=== PATIENT | male | born 1995 | race African-American/Black ===

== ENCOUNTER 2017-10-09 12:02 | Emergency (ER) | payer OTHER ==
[~2017-10-09] VITALS: Ht 170.2 cm; Wt 70.0 kg
[2017-10-09 12:06] VITALS: BP 132/63; PULSE 81; RESP 16; TEMP 98.1; O2SAT 98
--- NOTE | 2017-10-09 12:12 | PD ---
HPI Chief Complaint: Seizure Time Seen by Provider: 12:11 Travel History International Travel<30 days: No Contact w/Intl Traveler<30days: No Traveled to known affect area: No History of Present Illness HPI 22-year-old male came to the emergency room with history of possible seizure. When EMS arrived they found him altered mental status and lethargic. No tongue bite lip bite. No incontinence. Patient says he thinks he has seizure disorder because he's had them before. Upon asking he tells me that he had smoked weed last night. Denies any other illicit drug abuse. Currently is awake and answering questions slowly. Vital signs are stable. [facility]LY [facility], [facility] Past Medical History Narrative Medical List of her past medical, surgical, social and family history is reviewed from the nursing note. Asthma: No Blood Disorders: No Anxiety: No Depression: No Heart Rhythm Problems: No Cancer: No Cardiovascular Problems: No High Cholesterol: No Chest Pain: Yes Congestive Heart Failure: No COPD: No Diabetes: No Diminished Hearing: No Genitourinary: No Headaches: Yes Insomnia: Yes Musculoskeletal: No Neurologic: Yes (NEW ONSET SEIZURES) Psychiatric: No Reproductive: No Respiratory: No Immunizations Current: Yes Sleep Apnea: No Thyroid Disease: No Social History Alcohol Use: No Tobacco Use: No Substance Use: Yes (ECTASY) Allergies-Medications (Allergen,Severity, Reaction): Coded Allergies: No Known Allergies (Verified Adverse Reaction, Unknown, 10/09/17) Comments No known drug allergies. Reported Meds & Prescriptions Reported Meds & Active Scripts Active No Active Prescriptions or Reported Medications Narrative Medication List of her home medications reviewed from the nursing note. Review of Systems Except as stated in HPI: all other systems reviewed are Neg Neurologic: Positive: Seizures Physical Exam Narrative GENERAL: Awake, alert, no obvious distress SKIN: Focused skin assessment warm/dry. HEAD: Atraumatic. Normocephalic. EYES: Pupils equal and round. No scleral icterus. No injection or drainage. ENT: No nasal bleeding or discharge. Mucous membranes pink and moist. NECK: Trachea midline. No JVD. CARDIOVASCULAR: Regular rate and rhythm. No murmur appreciated. RESPIRATORY: No accessory muscle use. Clear to auscultation. Breath sounds equal bilaterally. GASTROINTESTINAL: Abdomen soft, non-tender, nondistended. Hepatic and splenic margins not palpable. MUSCULOSKELETAL: No obvious deformities. No clubbing. No cyanosis. No edema. NEUROLOGICAL: Awake and alert. No obvious cranial nerve deficits. Motor grossly within normal limits. Normal speech. PSYCHIATRIC: Appropriate mood and affect; insight and judgment normal. Data Data Last Documented VS Vital Signs Date Time Temp Pulse Resp B/P (MAP) Pulse Ox O2 Delivery O2 Flow Rate FiO2 10/09/17 15:22 10/09/17 15:18 82 16 100 Room Air 10/09/17 12:06 98.1 Orders Orders Complete Blood Count With Diff (10/09/17 12:18) Basic Metabolic Panel (Bmp) (10/09/17 12:18) Alcohol (Ethanol) (10/09/17 12:18) Drug Screen, Random Urine (10/09/17 12:18) Electrocardiogram (10/09/17 ) Ct Brain W/O Iv Contrast(Rout) (10/09/17 ) Blood Glucose (10/09/17 12:18) Ecg Monitoring (10/09/17 12:18) Iv Access Insert/Monitor (10/09/17 12:18) Oximetry (10/09/17 12:18) Sodium Chloride 0.9% Flush (Ns Flush) (10/09/17 12:30) Ua Includes Microscopic (10/09/17 12:18) Troponin I (10/09/17 12:18) Sodium Chlor 0.9% 1000 Ml Inj (Ns 1000 M (10/09/17 13:45) Ed Discharge Order (10/09/17 13:47) Labs Laboratory Tests Test 10/09/17 12:25 10/09/17 12:30 White Blood Count 11.8 TH/MM3 Red Blood Count 4.72 MIL/MM3 Hemoglobin 14.6 GM/DL Hematocrit 43.9 % Mean Corpuscular Volume 93.1 FL Mean Corpuscular Hemoglobin 30.9 PG Mean Corpuscular Hemoglobin Concent 33.2 % Red Cell Distribution Width 13.4 % Platelet Count 270 TH/MM3 Mean Platelet Volume 9.1 FL Neutrophils (%) (Auto) 69.2 % Lymphocytes (%) (Auto) 22.0 % Monocytes (%) (Auto) 6.0 % Eosinophils (%) (Auto) 2.3 % Basophils (%) (Auto) 0.5 % Neutrophils # (Auto) 8.1 TH/MM3 Lymphocytes # (Auto) 2.6 TH/MM3 Monocytes # (Auto) 0.7 TH/MM3 Eosinophils # (Auto) 0.3 TH/MM3 Basophils # (Auto) 0.1 TH/MM3 CBC Comment DIFF FINAL Differential Comment Blood Urea Nitrogen 9 MG/DL Creatinine 1.52 MG/DL Random Glucose 103 MG/DL Calcium Level 9.2 MG/DL Sodium Level 137 MEQ/L Potassium Level 3.6 MEQ/L Chloride Level 102 MEQ/L Carbon Dioxide Level 14.8 MEQ/L Anion Gap 20 MEQ/L Estimat Glomerular Filtration Rate 69 ML/MIN Troponin I LESS THAN 0.02 NG/ML Ethyl Alcohol Level LESS THAN 3 MG/DL Urine Color LIGHT-YELLOW Urine Turbidity CLEAR Urine pH 5.5 Urine Specific Mcroberts 1.013 Urine Protein 30 mg/dL Urine Glucose (UA) NEG mg/dL Urine Ketones 10 mg/dL Urine Occult Blood MOD Urine Nitrite NEG Urine Bilirubin NEG Urine Urobilinogen LESS THAN 2.0 MG/DL Urine Leukocyte Esterase NEG Urine RBC 1 /hpf Urine WBC 1 /hpf Urine Squamous Epithelial Cells 1 /hpf Urine Bacteria OCC /hpf Urine Hyaline Casts 1 /lpf Urine Mucus MANY /lpf Urine Opiates Screen POS Urine Barbiturates Screen NEG Urine Amphetamines Screen NEG Urine Benzodiazepines Screen POS Urine Cocaine Screen NEG Urine Cannabinoids Screen POS MDM Medical Decision Making Medical Screen Exam Complete: Yes Emergency Medical Condition: Yes Medical Record Reviewed: Yes Interpretation(s) Twelve-lead EKG was reviewed by me. Normal sinus rhythm, normal axis, nonspecific ST-T wave changes. Heart rate of 75 bpm. Differential Diagnosis Substance-induced seizure, seizure disorder, intracranial bleed Narrative Course 1 PM blood test results of back and within normal limit. CT scan is within normal limit. Urine drug screen is positive for opiates and benzos in addition to the marijuana that he agreed to. I believe his seizures are substance- induced. At this point I'm comfortable discharging him home. Procedures EKG Prior to Arrival: No Diagnosis Primary Impression: Seizure Additional Impression: Substance abuse Referrals: Primary Care Physician 2 days Additional Instructions: Should not be doing any drugs as the very dangerous for you. Do not drive. See your primary care physician. Med/Other Pt SpecificInfo: No Change to Meds Scripts No Active Prescriptions or Reported Meds Disposition: DISCHARGE HOME Condition: Stable Megan Hirsch MD Oct 09, 2017 12:12
[2017-10-09] MEDS ORDERED: SODIUM CHLORIDE 0.9% FLUSH 10 ML FLUSH IVF PRN (12:30)
[2017-10-09 12:55] LABS: AUTOMATED NEUTROPHIL # 8.1 TH/MM3 (1.8-7.7); BASOPHIL # 0.1 TH/MM3 (0-0.2); BASOPHIL % 0.5 % (0.0-2.0); EOSINOPHIL # 0.3 TH/MM3 (0-0.4); EOSINOPHIL % 2.3 % (0.0-4.0); HEMATOCRIT 43.9 % (39.0-51.0); HEMO FLAGS DIFF FINAL; LYMPHOCYTE # 2.6 TH/MM3 (1.0-4.8); MEAN CELL VOLUME 93.1 FL (80.0-100.0); MEAN CORPUSCULAR HEMOGLOBIN 30.9 PG (27.0-34.0); MEAN CORPUSCULAR HGB CONC 33.2 % (32.0-36.0); NEUT % 69.2 % (16.0-70.0); PLATELET COUNT 270 TH/MM3 (150-450); RED BLOOD COUNT 4.72 MIL/MM3 (4.50-5.90); RED CELL DISTRIBUTION WIDTH 13.4 % (11.6-17.2); WHITE BLOOD COUNT 11.8 TH/MM3 (4.0-11.0)
[2017-10-09 13:13] LABS: ANION GAP 20 MEQ/L (5-15); BICARBONATE 14.8 MEQ/L (21.0-32.0); BLOOD UREA NITROGEN 9 MG/DL (7-18); CHLORIDE 102 MEQ/L (98-107); GLOMERULAR FILTRATION RATE 69 ML/MIN (>89); POTASSIUM 3.6 MEQ/L (3.5-5.1); SODIUM (NA) 137 MEQ/L (136-145)
[2017-10-09 13:13] LABS: BACTERIA, URINE OCC /hpf; BLOOD, URINE MOD (NEG); GLUCOSE,URINE NEG (NEG); HYALINE CAST, URINE 1 /lpf (RARE); KETONE, URINE 10 mg/dL (NEG); MUCUS URINE MANY /lpf (OCC); NITRITE,URINE NEG (NEG); PH, URINE 5.5 (5.0-8.5); SQUAMOUS EPITHELIAL CELL URINE 1 /hpf (0-5); URINE COLOR LIGHT-YELLOW (YELLW/STRAW)
[2017-10-09 13:30] LABS: ALCOHOL LESS THAN 3 MG/DL (0-5)
--- NOTE | 2017-10-09 13:40 | RADRPT ---
EXAM DATE/TIME: 10/09/2017 13:17 [facility] COMPARISON: CT BRAIN W/O CONTRAST, January 30, 2016, 20:46. INDICATIONS : Seizure RADIATION DOSE: 56.35 CTDIvol (mGy) MEDICAL HISTORY : Seizures. SURGICAL HISTORY : None. ENCOUNTER: Initial ACUITY: 1 day PAIN SCALE: 4/10 LOCATION: cranial TECHNIQUE: Multiple contiguous axial images were obtained of the head. Using automated exposure control and adj ustment of the mA and/or kV according to patient size, radiation dose was kept as low as reasonably a chievable to obtain optimal diagnostic quality images. DICOM format image data is available electro nically for review and comparison. FINDINGS: CEREBRUM: The ventricles are normal for age. No evidence of midline shift, mass lesion, hemorrhage or acute in farction. No extra-axial fluid collections are seen. POSTERIOR FOSSA: The cerebellum and brainstem are intact. The 4th ventricle is midline. The cerebellopontine angle i s unremarkable. EXTRACRANIAL: The visualized portion of the orbits is intact. Isolated mucoperiosteal thickening in a posterior eth moid air cell on the right SKULL: The calvaria is intact. No evidence of skull fracture. CONCLUSION: 1. Minimal chronic sinus disease in the posterior right ethmoid air cells. 2. Otherwise negative. Surjit Mauricio MD on October 09, 2017 at 13:32 Board Certified Radiologist. This report was verified electronically.
[2017-10-09] MEDS ORDERED: SODIUM CHLOR 0.9% 1000 ML INJ 1,000 ML IV ONE (13:45)
[2017-10-09 15:18] VITALS: BP 124/69; PULSE 82; RESP 16; O2SAT 100
--- NOTE | 2017-10-10 11:49 | EKG ---
Date Performed: 10/09/2017 Time Performed: 12:31:38 PTAGE: 22 years EKG: Sinus rhythm NORMAL ECG Compared to prior tracing no significant change PREVIOUS TRACING : 01/30/2016 20.10 DOCTOR: Spencer Martines Interpretating Date/Time 10/10/2017 11:49:13
== END 2017-10-09 15:34 | disposition home or self-care (01) ==
LOC: NEPE 12:02
DX: R56.9 Unspecified convulsions (principal); F19.10 Other psychoactive substance abuse, uncomplicated
CPT/HCPCS: 70450; 80048; 80307; 81001; 84484; 85025; 93005; 96360; 99285; J7030

== ENCOUNTER 2018-02-15 18:50 | Emergency (ER) | payer OTHER ==
[~2018-02-15] VITALS: Ht 167.6 cm; Wt 61.0 kg
[2018-02-15 19:10] VITALS: BP 101/61; PULSE 78; RESP 18; TEMP 98.1; O2SAT 98
[2018-02-15 20:00] VITALS: BP 121/70; PULSE 79; RESP 16; O2SAT 98
[2018-02-15] MEDS ORDERED: SODIUM CHLORIDE 0.9% FLUSH 10 ML FLUSH IVF PRN (20:00)
[2018-02-15 20:02] VITALS: O2SAT 99
--- NOTE | 2018-02-15 20:03 | PD ---
HPI Chief Complaint: Injury Time Seen by Provider: 19:55 Travel History International Travel<30 days: No Contact w/Intl Traveler<30days: No Traveled to known affect area: No History of Present Illness HPI 23 y/o male presents with right shoulder pain after having a seizure. He states he has history of seizures but is never been put on medications for them. He states that he did hit his head and right shoulder. He feels like his right shoulder is dislocated now. He denies any other concurrent complaints but history is limited about the event as he does not recall it. Quality pain is sharp. Severity is moderate. Pain is worse if you move the area. Duration is shortly prior to arrival. He denies other modifying factors. PFSH Past Medical History Asthma: No Blood Disorders: No Anxiety: No Depression: No Heart Rhythm Problems: No Cancer: No Cardiovascular Problems: No High Cholesterol: No Chest Pain: Yes Congestive Heart Failure: No COPD: No Diabetes: No Diminished Hearing: No Genitourinary: No Headaches: Yes Insomnia: Yes Musculoskeletal: No Neurologic: Yes (NEW ONSET SEIZURES) Psychiatric: No Reproductive: No Respiratory: No Immunizations Current: Yes Seizures: Yes Sleep Apnea: No Thyroid Disease: No Social History Alcohol Use: Yes Tobacco Use: Yes Substance Use: Yes (ECTASY) Allergies-Medications (Allergen,Severity, Reaction): Coded Allergies: No Known Allergies (Verified Adverse Reaction, Unknown, 02/15/18) Reported Meds & Prescriptions Reported Meds & Active Scripts Active No Active Prescriptions or Reported Medications Review of Systems Except as stated in HPI: all other systems reviewed are Neg Physical Exam Narrative GENERAL: 23-year-old male in no apparent distress SKIN: Focused skin assessment warm/dry. HEAD: Atraumatic. Normocephalic. EYES: Pupils equal and round. No scleral icterus. No injection or drainage. ENT: No nasal bleeding or discharge. Mucous membranes pink and moist. NECK: Trachea midline. CARDIOVASCULAR: Regular rate and rhythm. RESPIRATORY: No accessory muscle use. Clear to auscultation. Breath sounds equal bilaterally. GASTROINTESTINAL: Abdomen soft, non-tender, nondistended. MUSCULOSKELETAL: Pain with palpation of right shoulder was likely dislocation, no pain with other joints , neurovascularly intact, no lacerations over, compartments soft. NEUROLOGICAL: Awake and alert. No obvious cranial nerve deficits. Motor grossly within normal limits except for limited with right shoulder due to likely dislocation. Normal speech. PSYCHIATRIC: Appropriate mood and affect; insight and judgment normal. Data Data Last Documented VS Vital Signs Date Time Temp Pulse Resp B/P (MAP) Pulse Ox O2 Delivery O2 Flow Rate FiO2 02/15/18 23:07 02/15/18 22:00 70 14 100 Room Air 02/15/18 21:00 21 02/15/18 19:10 98.1 Orders Orders Complete Blood Count With Diff (02/15/18 19:55) Basic Metabolic Panel (Bmp) (02/15/18 19:55) Alcohol (Ethanol) (02/15/18 19:55) Drug Screen, Random Urine (02/15/18 19:55) Electrocardiogram (02/15/18 ) Ct Brain W/O Iv Contrast(Rout) (02/15/18 ) Blood Glucose (02/15/18 19:55) Ecg Monitoring (02/15/18 19:55) Iv Access Insert/Monitor (02/15/18 19:55) Oximetry (02/15/18 19:55) Sodium Chloride 0.9% Flush (Ns Flush) (02/15/18 20:00) Shoulder, Limited(2vws) (02/15/18 ) Propofol 200 Mg/20 Ml Inj (Diprivan 200 (02/15/18 20:30) Sodium Chlor 0.9% 1000 Ml Inj (Ns 1000 M (02/15/18 20:30) Splint Or Brace Apply/Monitor (02/15/18 21:08) Shoulder, Limited(2vws) (02/15/18 21:18) Sling And Swathe (02/15/18 ) Ed Discharge Order (02/15/18 23:05) Labs Laboratory Tests Test 02/15/18 20:05 02/15/18 22:15 White Blood Count 13.5 TH/MM3 Red Blood Count 4.94 MIL/MM3 Hemoglobin 14.9 GM/DL Hematocrit 43.9 % Mean Corpuscular Volume 89.0 FL Mean Corpuscular Hemoglobin 30.3 PG Mean Corpuscular Hemoglobin Concent 34.0 % Red Cell Distribution Width 13.4 % Platelet Count 261 TH/MM3 Mean Platelet Volume 8.4 FL Neutrophils (%) (Auto) 89.8 % Lymphocytes (%) (Auto) 5.7 % Monocytes (%) (Auto) 4.2 % Eosinophils (%) (Auto) 0.0 % Basophils (%) (Auto) 0.3 % Neutrophils # (Auto) 12.1 TH/MM3 Lymphocytes # (Auto) 0.8 TH/MM3 Monocytes # (Auto) 0.6 TH/MM3 Eosinophils # (Auto) 0.0 TH/MM3 Basophils # (Auto) 0.0 TH/MM3 CBC Comment DIFF FINAL Differential Comment Blood Urea Nitrogen 7 MG/DL Creatinine 1.10 MG/DL Random Glucose 92 MG/DL Calcium Level 9.2 MG/DL Sodium Level 136 MEQ/L Potassium Level 3.9 MEQ/L Chloride Level 102 MEQ/L Carbon Dioxide Level 25.5 MEQ/L Anion Gap 9 MEQ/L Estimat Glomerular Filtration Rate 99 ML/MIN Ethyl Alcohol Level LESS THAN 3 MG/DL Urine Opiates Screen NEG Urine Barbiturates Screen NEG Urine Amphetamines Screen NEG Urine Benzodiazepines Screen POS Urine Cocaine Screen NEG Urine Cannabinoids Screen POS MDM Medical Decision Making Medical Screen Exam Complete: Yes Emergency Medical Condition: Yes Medical Record Reviewed: Yes (Past history confirmed) Interpretation(s) CBC & BMP Diagram 02/15/18 20:05 Calcium Level 9.2 Last 24 hours Impressions Shoulder X-Ray 02/15/182117 Signed Impressions: Service Date/Time: January 21:18 - CONCLUSION: Interval reduction of shoulder dislocation. Jona Edge MD Shoulder X-Ray 02/15/18 0000 Signed Impressions: Service Date/Time: January 20:10 - CONCLUSION: Anterior shoulder dislocation with Hill-Sachs fracture of the humeral head Jona Edge MD Head CT 02/15/18 0000 Signed Impressions: Service Date/Time: January 20:13 - CONCLUSION: Normal examination. Jona Edge MD Differential Diagnosis Fracture, dislocation, seizure, electrolyte abnormality, bleed Narrative Course We will check blood work, right shoulder x-ray, CT brain and reevaluate ED workup shows right shoulder dislocation. Attempted with Fares and unable to reduce technique, agrees to conscious sedation for reduction Patient seizure is likely related to Xanax withdrawal as he states he started taking it again and his last dose was on the 16. On review of records antiseizure medication was not recommended given his seizure was related to benzodiazepine withdrawal which is likely the case again today. He was advised to avoid illicit drugs and to follow with a neurologist and orthopedic physician. Patient denies any new complaints and states that they are feeling better. Patient happy with care, all questions answered. Patient knows that follow up is incumbent on them and to return to the emergency room immediately if new or worsening symptoms develop. Patient given strict return precautions, vitals reviewed and are normal, agrees to further workup as an outpatient. Procedures Procedure Narrative After the risks and benefits were discussed the following procedure was performed: MODERATE SEDATION: The patient was placed on a patient services clerk and pulse oximetry. An ambu bag and suction was immediately available at bedside. The patient was monitored by the nurse. Oxygen saturation, heart rate and blood pressure were monitored. Procedural sedation was acheived using 130 mg of propofol. The patient was observed until awake and alert. Procedural Sedation time in attendance was 15 propofol minutes. After the risks and benefits were discussed the following procedure was performed: With conscious sedation using propofol, reduction of right shoulder with traction countertraction on 1 attempt, was neurovascularly intact after, patient tolerated procedure. Diagnosis Primary Impression: Dislocation of right shoulder joint Qualified Codes: S43.004A - Unspecified dislocation of right shoulder joint, initial encounter Additional Impression: Seizure Patient Instructions: General Instructions Additional Instructions: avoid drug use, follow with neurology, no driving until cleared by neurology keep arm in sling, and follow-up with orthopedic physician in the next 2-3 days , Tylenol as needed Med/Other Pt SpecificInfo: No Change to Meds Scripts No Active Prescriptions or Reported Meds Disposition: 01 DISCHARGE HOME Condition: Stable Yajaira Aguirre MD Feb 15, 2018 20:03
[2018-02-15 20:20] LABS: AUTOMATED NEUTROPHIL # 12.1 TH/MM3 (1.8-7.7); BASOPHIL % 0.3 % (0.0-2.0); HEMATOCRIT 43.9 % (39.0-51.0); HEMOGLOBIN 14.9 GM/DL (13.0-17.0); LYMPH % 5.7 % (9.0-44.0); LYMPHOCYTE # 0.8 TH/MM3 (1.0-4.8); MEAN CORPUSCULAR HEMOGLOBIN 30.3 PG (27.0-34.0); MEAN PLATELET VOLUME 8.4 FL (7.0-11.0); MONO % 4.2 % (0.0-8.0); MONOCYTE # 0.6 TH/MM3 (0-0.9); NEUT % 89.8 % (16.0-70.0); PLATELET COUNT 261 TH/MM3 (150-450); RED BLOOD COUNT 4.94 MIL/MM3 (4.50-5.90); RED CELL DISTRIBUTION WIDTH 13.4 % (11.6-17.2); WHITE BLOOD COUNT 13.5 TH/MM3 (4.0-11.0)
[2018-02-15] MEDS ORDERED: PROPOFOL 200 MG/20 ML AMP IV ONE (20:30)
[2018-02-15] MEDS ORDERED: SODIUM CHLOR 0.9% 1000 ML INJ 1,000 ML IV ONE (20:30)
--- NOTE | 2018-02-15 20:34 | RADRPT ---
EXAM DATE/TIME: 02/15/2018 20:10 [facility] COMPARISON: No previous studies available for comparison. INDICATIONS : Right shoulder pain after seizure. MEDICAL HISTORY : Seizures. SURGICAL HISTORY : None. ENCOUNTER: Initial ACUITY: 1 day PAIN SCORE: 9/10 LOCATION: Right shoulder FINDINGS: Examination reveals an anterior right shoulder dislocation. There is a prominent Hill-Sachs deformity involving the humeral head which may not be entirely acute if this patient has dislocated previously . The adjacent clavicle and ribs are intact. CONCLUSION: Anterior shoulder dislocation with Hill-Sachs fracture of the humeral head Jona Edge MD on February 15, 2018 at 20:22 Board Certified Radiologist. This report was verified electronically.
--- NOTE | 2018-02-15 20:38 | RADRPT ---
EXAM DATE/TIME: 02/15/2018 20:13 [facility] COMPARISON: CT BRAIN W/O CONTRAST, October 09, 2017, 13:17. INDICATIONS : Seizure RADIATION DOSE: 56.77 CTDIvol (mGy) MEDICAL HISTORY : Seizures. SURGICAL HISTORY : None. ENCOUNTER: Initial ACUITY: 1 day PAIN SCALE: 0/10 LOCATION: cranial TECHNIQUE: Multiple contiguous axial images were obtained of the head. Using automated exposure control and adj ustment of the mA and/or kV according to patient size, radiation dose was kept as low as reasonably a chievable to obtain optimal diagnostic quality images. DICOM format image data is available electro nically for review and comparison. FINDINGS: CEREBRUM: The ventricles are normal for age. No evidence of midline shift, mass lesion, hemorrhage or acute in farction. No extra-axial fluid collections are seen. POSTERIOR FOSSA: The cerebellum and brainstem are intact. The 4th ventricle is midline. The cerebellopontine angle i s unremarkable. EXTRACRANIAL: The visualized portion of the orbits is intact. SKULL: The calvaria is intact. No evidence of skull fracture. CONCLUSION: Normal examination. Jona Edge MD on February 15, 2018 at 20:31 Board Certified Radiologist. This report was verified electronically.
[2018-02-15 20:43] LABS: BICARBONATE 25.5 MEQ/L (21.0-32.0); BLOOD UREA NITROGEN 7 MG/DL (7-18); CALCIUM 9.2 MG/DL (8.5-10.1); CHLORIDE 102 MEQ/L (98-107); GLOMERULAR FILTRATION RATE 99 ML/MIN (>89); GLUCOSE,RANDOM 92 MG/DL (74-106); SODIUM (NA) 136 MEQ/L (136-145)
[2018-02-15 21:00] VITALS: O2SAT 100
--- NOTE | 2018-02-15 21:58 | RADRPT ---
EXAM DATE/TIME: 02/15/2018 21:18 [facility] COMPARISON: No previous studies available for comparison. INDICATIONS : Post reduction MEDICAL HISTORY : Seizures SURGICAL HISTORY : None. ENCOUNTER: Subsequent ACUITY: 1 day PAIN SCORE: 3/10 LOCATION: Right shoulder FINDINGS: Interval reduction of right shoulder dislocation. Hill-Sachs deformity involving the humeral head and Bankart fracture involving the visualized inferomedial glenoid. Adjacent clavicle and ribs are gross ly intact. CONCLUSION: Interval reduction of shoulder dislocation. Jona Edge MD on February 15, 2018 at 21:55 Board Certified Radiologist. This report was verified electronically.
[2018-02-15 22:00] VITALS: BP 124/79; PULSE 70; RESP 14; O2SAT 100
--- NOTE | 2018-02-17 09:09 | EKG ---
Date Performed: 02/15/2018 Time Performed: 20:45:56 PTAGE: 23 years EKG: Sinus rhythm WITH SINUS ARRHYTHMIA NORMAL ECG PREVIOUS TRACING : 10/09/2017 12.31 DOCTOR: Mayte Mckinney Interpretating Date/Time 02/17/2018 09:07:05
== END 2018-02-15 23:19 | disposition home or self-care (01) ==
LOC: NEPE 18:50
DX: S43.004A Unspecified dislocation of right shoulder joint, initial encounter (principal)
CPT/HCPCS: 23650; 70450; 73030; 80048; 80307; 85025; 93005; 96374; 99152; 99285; J7030

== ENCOUNTER 2018-04-12 22:38 | Emergency (ER) | payer OTHER | END 2018-04-12 23:42 | disposition left against medical advice (07) | LOC: NED 22:38 | DX: Z53.21 Procedure and treatment not carried out due to patient leaving prior to being seen by health care provider (principal) | CPT/HCPCS: 99281 ==